=== PATIENT | male | born 1980 | race Caucasian/White ===

== ENCOUNTER 2023-01-03 12:53 | Emergency (ER) | payer OTHER, MEDICAID ==
[~2023-01-03] VITALS: Ht 177.8 cm; Wt 49.9 kg
[2023-01-03 13:15] VITALS: BP_SYST 149; PULSE 117; RESP 20; TEMP 97.8; O2SAT 99
[2023-01-03] MEDS ORDERED: KETAMINE HCL 500 MG/10 ML VIAL IM ONE (15:15)
[2023-01-03] MEDS ORDERED: HALOPERIDOL LACTATE 5 MG/ML VIAL IM ONE (15:30)
[2023-01-03] MEDS ORDERED: LORazepam 2 MG/ML VIAL IM ONE (15:30)
[2023-01-03] MEDS ORDERED: DIPHENHYDRAMINE INJ 50 MG/ML VIAL IM ONE (15:30)
[2023-01-03 16:25] VITALS: BP_SYST 125; PULSE 74; RESP 18; TEMP 97.3; O2SAT 97
== END 2023-01-03 16:25 | disposition home or self-care (01) ==
LOC: SED 12:53
DX: S01.511A Laceration without foreign body of lip, initial encounter (principal); Z79.899 Other long term (current) drug therapy; W01.0XXA Fall on same level from slipping, tripping and stumbling without subsequent striking against object, initial encounter; Y93.89 Activity, other specified; Y92.89 Other specified places as the place of occurrence of the external cause; Y99.8 Other external cause status
CPT/HCPCS: 99284; 12011; 96372; J1200; J1630; J2060